=== PATIENT | female | born 1960 | race Caucasian/White ===

== ENCOUNTER → 2020-11-17 10:14 | Outpatient (CLI) | payer OTHER, SELFPAY ==
[2020-11-17 11:23] LABS: COVID19 -Nasal RAPID Negative (Negative)
== END ==
PROVIDERS: PCP Family Medicine; Visit Provider Student in an Organized Health Care Education/Training Program
DX: Z01.812 Encounter for preprocedural laboratory examination (principal); Z20.822 Contact with and (suspected) exposure to COVID-19
CPT/HCPCS: 87635

== ENCOUNTER 2020-11-19 09:45 | Observation (INO) | payer OTHER, SELFPAY ==
[2020-11-11 08:41] VITALS: BMI 24.2
[2020-11-18] VITALS (15 sets, daily range): BP systolic 92–126; BP diastolic 38–83; PULSE 60–96; RESP 11–20; TEMP 36.1–37; O2SAT 94–100; BMI 24.2
--- NOTE | 2020-11-18 | PATH_ITS ---
[facility] Accession Number: [id number] . 01 Material submitted: . hip - LEFT HIP MASS . 01 Clinical history: . LEFT TOTAL HIP ARTHROPLASTY/ANTERIOR APPROACH *OPB . 01 Diagnosis: Left Hip: Fragments of fibrocartilage with extensive degeneration/necrosis and reactive changes. Scant synovial tissue with mild chronic inflammation. MRV 11/21/20208 Local . 01 Electronically signed: . Citlaly Mills MD, Pathologist NPI- [id number] . 01 Gross description: . The specimen is received in formalin, labeled left hip mass and consists of multiple irregular cano to cano-pink fragments of soft tissue measuring 4.0 x 2.2 x 1.5 cm in aggregate. The specimen is entirely submitted in cassettes A1-A3. ([id number]) /MRV 11/19/20201452 Local . 01 Pathologist provided ICD-10: M16.12 . 01 CPT . 635100 Performed at: 01 [facility] [address] [place] [address], [place], [place] [id number] MD Cristobal Rodríguez MD Phone: [phone]
[2020-11-18] MEDS: CELECOXIB 200 MG CAPSULE PO (07:18)
[2020-11-18] MEDS: ACETAMINOPHEN 325 MG TABLET 975 MG PO (07:18)
[2020-11-18] MEDS: PREGABALIN 75 MG CAPSULE PO (07:19)
[2020-11-18] MEDS: LACTATED RINGERS 1,000 ML 42 ML IV ×2 (07:20→11:44)
[2020-11-18] MEDS: VANCOMYCIN 1,000 MG/200 ML PIGGYBACK 200 MG IV (07:20)
--- NOTE | 2020-11-18 07:37 | PM.PREOP ---
Pre-operative Note COVID-19 COVID-19 status: Negative Interval Note History & Physical reviewed/Exam performed by Physician: Yes Changes to H&P: No
--- NOTE | 2020-11-18 07:38 | PM.OP.1 ---
Operative Date/Time/Diagnoses Date of procedure: 11/18/20 Time of procedure: 08:00 Pre-op diagnosis: left hip OA, left hip mass (cyst) Post-op diagnosis: same Procedure & Clinicians Procedure: Left total hip arthroplasty and excision of left hip soft tissue mass, complex cyst Same procedure as scheduled: Yes Indications: The patient has had progressively worsening left hip pain with radiographic changes consistent with arthritis. Non-operative management has failed and the patient has requested total hip replacement. The risks, benefits and alternatives to surgery were discussed with the patient prior to proceeding. Risks discussed included, but were not limited to, failure to relieve pain, leg length discrepancy, dislocation, stiffness, infection, nerve damage, deep venous thrombosis, pulmonary embolism, stroke, coma, heart attack, permanent paralysis and , as well as the potential need for eventual revision of the prosthetic. Surgeon: Merry Luna Geological Science Teacher: Pedro Luis Gomez Anesthesia Type: General and Spinal Operative Notes Findings: Large complex cyst in the anterior hip, adequate bone, adequate stability Closure Type: primary Specimen(s): none sent Prosthetic devices, grafts, tissues, transplants, or devices: Luna and Nephew anthology 5 standard offset, R3 54 cup, +0 oxinium head Estimated Blood Loss (mL): 250 Blood products transfused: none Procedure in detail: The patient was brought to the operating room. Patient was carefully positioned in the supine position. Time-out was performed and antibiotics were given. Anesthesia was induced. She was positioned in the on the table in order to allow hyperextension of the hip. The right lower extremity was prepped and draped in a standard sterile fashion. An anterior right hip incision was made 1 fingerbreadth lateral to the anterior superior iliac spine and extended distally towards the greater trochanter. Dissection was carried out through skin and subcutaneous tissues. Superficial hemostasis was achieved. The fascia over the tensor fascia dee was defined and incised with a knife. Two Allis clamps were used to grasp the fascia. Tensor fascia dee was retracted laterally. A gelpi retractor was placed. Dissection was carried out down along the neck. The circumflex vessels were carefully identified and cauterized with the Aqua Mantis. There was good visualization of the femoral neck. A Cobra was placed superior to the neck and the gluteus fibers were carefully stripped from that superior aspect of the capsule. A 2nd retractor was placed along the inferior aspect of the neck. The rectus insertion along the capsule was partially released. A 3rd retractor that was then gently placed over the rim of the acetabulum under the rectus. Capsule was carefully incised and released from the intertrochanteric line circumferentially superior to the mid sagittal line and inferiorly to the mid sagittal line until the lesser trochanter was palpable. A tag stitch was placed both in the superior and inferior limb of the capsular insertion. Along the acetabulum capsule was also released up to the mid sagittal 12:00 position. A portion of the labrum was resected. A saw was used to perform an osteotomy at the level of the intertrochanteric line and the junction of the superior femoral neck leaving approximately 1 finger breath of residual inferior neck above the lesser trochanter. A 2nd cut was made along the femoral neck at the base of the head and a napkin ring of neck was removed. Corkscrew was placed in the femoral head and the head was removed without difficulty. Retractors were then repositioned around the acetabulum. Residual labrum was resected and additional osteophytes were removed. A reamer that was 4 mm below the templated size was placed by hand in the acetabulum and it was reamed to centralize the acetabulum. It was then reamed up to 2 under the templated size and fluoroscopy was brought in to confirm the position of the reaming and depth of reaming. I reamed 1 under the anticipated size. A trial cup was placed and noted that it was appropriately sized and fluoroscopy confirmed position and depth. The component was open and inserted without difficulty fluoroscopic imaging was used to confirm that the cup had been adequately seated and was well positioned. It was further stabilized with a single screw. Neutral poly liner was placed. The cup was tested and noted to be stable. Attention was then directed to the femur. The femur was gently hyperextended additional capsular release was performed as needed in order to allow adequate visualization of the proximal femur with elevation of the femur. Patient was placed in a hyperextended slightly adducted position with maximum external rotation. Box osteotome was used to check for any residual neck as well as sclerotic bone along the trochanter. [place] pepper was placed in the femur. Additional broaching was performed. Canal finder was used to determine the alignment of the canal and position. Size 1 broach was placed. The canal was then appropriately broached up to the templated size as long as there was adequate stability of the broach and serial advancement of the broach without excessive impingement. Specific attention was directed at avoiding varus attempting to direct the distal aspect of the broach more anteriorly and avoiding excessive anteversion. Trial reduction showed acceptable range of motion, good stability, no posterior impingement, evangelical of leg length and appropriate lateral shuck. I also hyperflexed the hip and checked that there was no impingement anteriorly and there was good stability with flexion, adduction and internal rotation. Marcaine and Exparel were injected. The stem was placed without difficulty. Repeat trial reduction and x-ray showed acceptable overall position, length, and no evidence of the femoral fracture. Final head was placed. Wound was meticulously irrigated with normal saline. The hip was reduced and additional Exparel and Marcaine were injected. The capsule was closed with interrupted nonabsorbable sutures. The fascia of the tensor was closed with interrupted and running Vicryl. No drain was placed. Any tensor fascia dee muscle that appeared to be contused or injured which was a minimal amount was carefully resected. Capsule around the tensor was injected with Exparel and Marcaine. The skin was closed with barbed stitches for the subcutaneous tissue and skin. We also used surgical glue. The wound was dressed sterilely. Brief Betadine soak was also used and was meticulously irrigated with normal saline. Patient was transferred to recovery room in satisfactory condition. Complications: none Post-operative Condition: stable Disposition: Acute Care Plan for aftercare: The patient will be maintained on a standard total hip replacement protocol with weight bearing as tolerated and anterior hip precautions. The patient will receive Aspirin and sequential compression devices for DVT prophylaxis. The patient will be discharged home when safe for the home environment.
--- NOTE | 2020-11-18 08:00 | DI.RAD.S_ITS ---
PROCEDURE: XR HIP W PEL IF DONE LT 2V INDICATIONS: L HIP TOTAL HIP INNER OP TECHNIQUE: 2 view(s) of the hip acquired. COMPARISON: None. FINDINGS: Bones: Patient is status post left hip arthroplasty, with hardware components in expected positions. The hip joint appears congruent. The visualized bony structures appear intact. Soft tissues: Overlying postoperative changes are noted. No suspicious soft tissue densities. IMPRESSION: Normal left hip arthroplasty positioning. Dictated by: Derrek Richards M.D. on 11/18/2020 at 13:08 Approved by: Derrek Richards M.D. on 11/18/2020 at 13:09
--- NOTE | 2020-11-18 08:00 | DI.RAD.S_ITS ---
PROCEDURE: XR HIP W PEL IF DONE LT 2V INDICATIONS: LT TOTAL HIP POST OP TECHNIQUE: AP pelvis with lateral view(s) of the left hip(s). COMPARISON: [facility], [place], XR HIP W PEL IF DONE LT 2V, 11/18/2020, 9:39. FINDINGS: Bones: No fractures or dislocations. Newly positioned left hip arthroplasty components are in normal alignment. Pelvic ring appears intact. No suspicious bony lesions. Soft tissues: The visualized bowel gas pattern is normal. No suspicious soft tissue calcifications. IMPRESSION: Normal alignment established after left total hip arthroplasty. Moderate right hip joint degenerative osteoarthritic change noted. Dictated by: Derrek Richards M.D. on 11/18/2020 at 13:09 Approved by: Derrek Richards M.D. on 11/18/2020 at 13:10
[2020-11-18] MEDS: CEFAZOLIN 1 GM VIAL 2 GM IV ×3 (08:10→23:56)
[2020-11-18] MEDS: TRANEXAMIC ACID 1,000 MG VIAL 2000 MG INJ ×2 (08:15→10:35)
--- NOTE | 2020-11-18 08:32 | SUR.OPER ---
Addendum entered by Harika Ng R.N. 11/18/20 12:46: Operative leg intermittently in traction and rotation and in control of the surgeon. Original Note: Supine on padded Beatrice table with bilateral legs secured in padded positioning boots, bilateral feet wrapped in cast padding and coban, and suspended in positioning spars, operative leg in traction per surgeon. Head on one pillow. Arm on non-operative side secured on padded armboard also with foam padding <90 degrees abduction. Arm on operative side padded with gel pad and resting across chest then secured with tape over sheet. Padded perineal post in place per surgeon.
[2020-11-18] MEDS: BUPIVACAINE LIPOSOME 266 MG/20 ML VIAL INJ (08:38)
[2020-11-18] MEDS: BUPIVACAINE 0.25% W/ EPI 30 ML VIAL 60 ML INJ (08:42)
[2020-11-18] MEDS: SODIUM CHLORIDE IRRIG SOLUTION 250 ML, POVIDONE-IODINE SPONGE STICKS 1 APPLIC IRR (08:44)
[2020-11-18] MEDS: HYDROMORPHONE 2 MG INJ IV ×4 (11:10→11:27)
[2020-11-18] MEDS: hydrOXYzine 50 MG/ML INJ 25 MG IM (11:30)
[2020-11-18] MEDS: OXYCODONE IR 5 MG TABLET PO (11:41)
--- NOTE | 2020-11-18 11:42 | SUR.PHASEI ---
Patient appears much more comfortable and is not as restless. Report called to Jose A Edwards
[2020-11-18] MEDS: LACTATED RINGERS 1,000 ML 125 ML IV ×2 (13:13→20:55)
[2020-11-18] MEDS: IBUPROFEN 400 MG TABLET PO ×2 (13:14→17:19)
--- NOTE | 2020-11-18 13:39 | PC.NURSE ---
Pt to room 219 via bed from PACU at 1200. Pt is drowsy but rouses to name. Frequent reminders required for proper respiratory effort. O2 sat is 89-100 on RA but frequency of breaths is between 4-12. Pt denies pain, nausea, or shortness of breath. As Pt began to be more awake and her support person assisted by frequently talking with Pt and encouraging deep breathing, her respirations have increased to 12-16. Oriented Pt to room, call light, bed controls, and tv controls. Pt was given ice water to drink. Declined offer of food at this time. IVF infusing as ordered, scd's on and running.
[2020-11-18] MEDS: ACETAMINOPHEN 325 MG TABLET 650 MG PO (14:38)
--- NOTE | 2020-11-18 16:50 | PT.IIE ---
Current Diagnoses Unilateral primary osteoarthritis, left hip (11/18/20) Surgery Performed Operation Date: 11/18/20 07:45 Actual Procedures p Total Hip Arthroplasty/Anterior Approach and Excision of Left Hip Mass(Left) - Merry Luna MD Medical History (Last Updated 11/11/20 @ 13:21 by Jasmyn Salcido RN) Adverse effect of anesthesia Concussion (2017) Eczema Encounter for gamete intrafallopian transfer (GIFT) (1993) Hypotension Osteoarthritis Pseudocholinesterase deficiency Tinnitus Physical Therapy Inpatient Evaluation/Re-Eval M1 PT/OT-IP Prior Functional Status Start: 11/18/20 17:55 Freq: NEEDED Status: Active Protocol: Document 11/18/20 16:50 AB (Rec: 11/18/20 18:11 AB [id number]) Medical Review Prior Functional Status Medical History Reviewed Yes Communication pt is drowsy but able to answer questions but needs repeated cues to stay awake Mobility and Gait pt stated that she is independent with all mobilities and ambulation without AD but occasionally uses a SPC depending on hip pain Social History Household Members none Living Arrangements House Number of Floors (Floors) One Floor Number of Stairs To Enter/Railing? 3 platform steps to enter Home Environment High Toilet,Tub/Shower,Tub/ Shower Doors Home Equipment Front Wheel Walker,Straight Cane,Raised Toilet Seat w/ Armrests,Hand Held Shower,Grab Bars In Shower Additional Social History Comment pt's friend James will be staying to assist pt for ~ 2weeks pt lives in [facility] M2 PT-IP Current Condition Start: 11/18/20 17:55 Freq: NEEDED Status: Active Protocol: Document 11/18/20 16:50 AB (Rec: 11/18/20 18:11 AB [email or web address]) Physical Therapy Current Condition Current Condition Evaluation Date 11/18/20 Treatment Diagnosis s/p L CHAO anterior approach; difficulty in walking Onset Date 11/18/20 Precautions Anterior Hip Precautions No Hip Extension,No Hip External Rotation Weight Bearing Status Weight Bearing Status Weight Bear as Tolerated Allowed Weight Bearing Amount (enter % LLE WBAT or #) (%) M3 PT-IP Subjective Start: 11/18/20 17:55 Freq: NEEDED Status: Active Protocol: Document 11/18/20 16:50 AB (Rec: 11/18/20 18:11 AB [email or web address]) Subjective Physical Therapy Visit Type Type Initial Evaluation Visit Start Time 16:50 Visit Stop Time 17:50 Total Visit Minutes 60 Number of PARACHUTE TAPER Visits 0 Physical Therapy Visit Comments Patient Comments pt is agreeable to do PT and want to walk Therapy Pain Assessment Pain Present Pain Present Denied Pain M4 PT-IP Mobility and Gait Start: 11/18/20 17:55 Freq: NEEDED Status: Active Protocol: Document 11/18/20 16:50 AB (Rec: 11/18/20 18:11 AB [email or web address]) PT-Bed Mobility Assessment Supine to Sit Supine to Sit Minimal Assistance PT-Transfer Assessment Sit to and From Stand Sit to and from Stand Moderate Assistance,1 Person Assistance,Use of Upper Extremities Equipment Transfer Assistive Device Gait Belt,Front Wheeled Walker Orthotic/Prosthetic Devices or Brace: No Transfers Transfer Destination Chair Transfer Technique ambulated using FWW Transfer Ability Level of Assist Moderate Assistance,1 Person Assistance,Use of Upper Extremities Comments Mobility Comments educated pt and friend regarding L CHAO anterior precautions. BP: 108/64 pt required repeated cues to stay awake. pt stated that she really want to ambulate. completed supine to sit min a and cues. completed sit to stand x 3 attempts. educated pt techniques with sit to stand and completed mod A and cues. pt has decrease safety awareness affecting mobility. cued for L quads contraction. completed ambulation using FWW ~ 30 ft mod A and cues. BP after walker: 123/72. set up chair. pt completed sit to stand mod A and ambulated towards the chair but Dr. Luna came in and instructed pt to walk in the hallway and pt completed another ~ 30 ft mod A FWW and stated that she is getting nauseated. instructed pt to get back into the room and sat on the chair . max cues for safety. BP checked: 111/71. attempted to get nurse/NAC but unable to find. informed another nurse and is aware of pt's nausea. pt continues to be on/off alerted and continues to be drowsy. set up pt with table and call light and was feeling better before PT session ended. Left pt with friend in room. Gait Assessment Gait Gait Assistance Required: Moderate Assistance Distance (Feet) 30 Able to Maintain Weight Bearing Status Yes During Gait Assistive Devices Assistive Device Gait Belt,Front Wheeled Walker Orthotic/Prosthetic Devices or Brace: No Gait Deviations General Gait Pattern Antalgic,Decreased Stride Length,Decreased Feet Clearance Factors Limiting Gait Function Factors Limiting Gait Function Decreased Activity Tolerance, Decreased Sensation,Decreased Strength,Difficulty Following Directions,Limited Range of Motion,Poor Balance,Poor Safety Awareness Comments Gait Comments pls refer to mobility section for details PT-Balance Assessment Sitting Balance and Reactions Static Sitting Balance Ability Good Dynamic Sitting Balance Ability Good Standing Balance and Reactions Static Standing Balance Ability Fair Dynamic Standing Balance Ability Poor Device Used FWW M5 PT-IP Objective Assessments Start: 11/18/20 17:55 Freq: NEEDED Status: Active Protocol: Document 11/18/20 16:50 AB (Rec: 11/18/20 18:11 AB [id number]) Orientation Orientation/Cognition Level of Alertness Lethargic Orientation Name,Place,Situation Language Function Ability No Deficits Noted Safety Awareness Decreased Safety Awareness Gross Range of Motion Lower Extremity ROM Assessment Within Functional Limits Strength Lower Extremity Strength Assessment Left Impaired Hip 3+/5 Knee 4-/5 Sensation Assessment Sensation Gross Sensation Right LE Impaired Sensation Description Numbness Comments Sensation Comments c/o numbness on anterior upper thigh but able to move LE Muscle Tone Muscle Tone WNL Yes M6 PT-IP Treatment Start: 11/18/20 17:55 Freq: NEEDED Status: Active Protocol: Document 11/18/20 16:50 AB (Rec: 11/18/20 18:11 AB [id number]) Physical Therapy Treatment Education Education Provided Precautions,Weight Bearing Status,Post-Op Packet,Safety M7 PT-IP Assessment and Plan Start: 11/18/20 17:55 Freq: NEEDED Status: Active Protocol: Document 11/18/20 16:50 AB (Rec: 11/18/20 18:11 AB [email or web address]) PT Summary Assessment and Plan Potential Rehabilitation Potential Good Status of Condition at Evaluation Evolving Summary Impairments Pain,ROM,Strength,Balance, Coordination,Sensation,Tone, Cognition,Bed Mobility, Transfers,Gait,Activity Tolerance Assessment Summary pt requiring mod A with mobility using FWW. Pt s/p L CHAO anterior approach and just had surgery this morning. pt is drowsy and requires constant cues to stay awake and has decrease safety awareness at this time. pt will likely progress with mobility. will continue to assess and will conduct caregiver training when appropriate as well as stair climbing training. pt stated that she is set up with outpt PT. Goals Bed Mobility Goal Standby Assistance Transfer Goal Standby Assistance,Front Wheeled Walker Gait Goal Standby Assistance,Front Wheel Walker Gait Distance 150 Other Goals up/down 3 platform steps using FWW SBA Days to Meet Goals 5 Frequency of Treatment Frequency Of Treatment Twice a Day Treatment Plan Physical Therapy Treatment Plan Bed Mobility Training,Transfer Training,Gait Training, Therapeutic Exercise,Balance Retraining,Post Op Education, Discharge Planning,Hot or Cold Pack,Neuromuscular Re-ed, Coordination Retraining,Manual Therapy Precautions Anterior Hip Precautions No Hip Extension,No Hip External Rotation Other Precautions LLE WBAT Recommendations To Nursing Amount of Assist Needed 1 Person Assist Discharge Recommendations PT Discharge Recommendations Home with Assistance, Outpatient PT Transportation Needs at Discharge Private Vehicle
--- NOTE | 2020-11-18 21:05 | PC.NURSE ---
Pt satisfactory post op course. Lungs clear, SpO2 98% RA Left hip aquacell dsg CDI. IVF infusing as per MD orders into right hand Pt sat in chair for short time, amb. w/PT in hallway. Call light w/in reach, bed alarm on for pt safety. continue w/plan of care.
[2020-11-19] VITALS (7 sets, daily range): BP systolic 91–104; BP diastolic 41–58; PULSE 63–94; RESP 16–20; TEMP 36.3–37.3; O2SAT 95–100
[2020-11-19 06:12] LABS: Hematocrit 28.4 % (36-46); Hemoglobin 9.5 g/dL (12.0-16.0)
--- NOTE | 2020-11-19 09:47 | PT.IPTN ---
Current Diagnoses Unilateral primary osteoarthritis, left hip (11/18/20) Surgery Performed Operation Date: 11/18/20 07:45 Actual Procedures p Total Hip Arthroplasty/Anterior Approach and Excision of Left Hip Mass(Left) - Merry Luna MD Physical Therapy Treatment Note M2 PT-IP Current Condition Start: 11/18/20 17:55 Freq: NEEDED Status: Active Protocol: Document 11/18/20 16:50 AB (Rec: 11/18/20 18:11 AB [id number]) Physical Therapy Current Condition Current Condition Evaluation Date 11/18/20 Treatment Diagnosis s/p L CHAO anterior approach; difficulty in walking Onset Date 11/18/20 Precautions Anterior Hip Precautions No Hip Extension,No Hip External Rotation Weight Bearing Status Weight Bearing Status Weight Bear as Tolerated Allowed Weight Bearing Amount (enter % LLE WBAT or #) (%) M3 PT-IP Subjective Start: 11/18/20 17:55 Freq: NEEDED Status: Active Protocol: Document 11/19/20 09:20 SP (Rec: 11/19/20 11:10 SP [id number]) Subjective Physical Therapy Visit Type Type Treatment Note Visit Start Time 09:20 Visit Stop Time 09:47 Total Visit Minutes 27 Notes Friend James completed caregiver training and provided assist needed throughout tx. O2 100% on RA and HR 80 bpm supine assessed by Respiratory Therapist when arrived. Number of PROFESSOR OF JOURNALISM Visits 1 Physical Therapy Visit Comments Patient Comments pt is agreeable to do PT, want to walk and assess 3 PF step mgt required to enter home during tx. Patient Goals Return home with friend ( staying with her from [place]) to assist her. Therapy Pain Assessment Pain When Pain Assessed At Rest Pain Present Pain Present Denied Pain Location Left Hip Intensity 0 Scale Used at rest M4 PT-IP Mobility and Gait Start: 11/18/20 17:55 Freq: NEEDED Status: Active Protocol: Document 11/19/20 09:20 SP (Rec: 11/19/20 11:10 SP [id number]) PT-Bed Mobility Assessment Supine to Sit Supine to Sit Standby Assistance Sit to Supine Sit to Supine Total Assistance Scooting Scooting to Edge of Bed Standby Assistance Scooting Up and Down in Bed Dependent PT-Transfer Assessment Sit to and From Stand Sit to and from Stand Contact Guard Assistance,1 Person Assistance,Use of Upper Extremities Equipment Transfer Assistive Device Gait Belt,Front Wheeled Walker ,Mechanical Lift Orthotic/Prosthetic Devices or Brace: No Transfers Transfer Destination Bed,Wheelchair Transfer Technique ambulated using FWW Transfer Ability Level of Assist Contact Guard Assistance,Total Assistance,1 Person Assistance,Use of Upper Extremities Comments Mobility Comments Pt supine in bed when arrived, respiratory therapy assessing vitals, see notes BP was not assessed. When RT left, PROFESSOR OF JOURNALISM instructed LE ex: ankle pumps, heel slides with use of gait belt approx 90 * knee flex, quad and glut sets. She completed supine>sit SBA w/ use of gait belt self. Friend donned gait belt, Sit>stand CGA using BUE, cued push from bed then transition to FWW. Instructed wt shift for LE support awareness. Pt denied lightheadedness so proceeded to walk into hallway further distance CGA usign FWW w/c follow, denied lightheadedness but stated tiring at aprpox 50 ft, stand>sit in w/c CGA, cued for RLE positioned in front for comfort. PROFESSOR OF JOURNALISM pushed pt down to PF step. Pt sit> stand CGA pushed from chair, ascended/descended 2 PF step usign FWW CGA via friend, good balance and repositioning FWW self cued for patterning LEs and FWW as needed. When pt completed descend 2nd PF step reported lightheadedness so returned to chair 3 ft, stand> sit CGA with good hand placement. Pt became unresponsive w/ head tilted back and eyes looking forward opened repositioning when assisting BLE on foot rests. Rapid response called while PROFESSOR OF JOURNALISM supporting pts head, noted diapharatic forehead and arms . PROFESSOR OF JOURNALISM and team assisted pt back to room via w/c, on return pt able to answer questions appropriately. Pt unable to support head and trunk so pt hoyered back to bed into trendelenburg postion . Team assessed vitals, provided IV and fluids. Team took over. Pt once in bed stated felt alot better and talking appropriately. Gait Assessment Gait Gait Assistance Required: Contact Guard Assist,1 Person Assist Distance (Feet) 50 Able to Maintain Weight Bearing Status Yes During Gait Assistive Devices Assistive Device Gait Belt,Front Wheeled Walker Orthotic/Prosthetic Devices or Brace: No Gait Deviations General Gait Pattern Antalgic,Decreased Stride Length,Decreased Feet Clearance Factors Limiting Gait Function Factors Limiting Gait Function Decreased Activity Tolerance, Decreased Sensation,Decreased Strength,Difficulty Following Directions,Limited Range of Motion,Poor Safety Awareness Comments Gait Comments Pt maintained light stagger step, good demonstration no L hip IR or ext during gait using fWW, cGA w/c follow. Stair Climbing Assessment Evaluation Level of Assist On Stairs Contact Guard Assistance,1 Person Assistance Devices Stair Climbing Assistive Devices Front Wheel Walker Technique/Endurance Stair Climbing Direction Ascend and Descend Stair Climbing Technique Step to Step Number of Steps Climbed 1 Stair Climbing Set # Repetitions (reps) 2 Comments Stair Climbing Comments See mobility comments for details, completed 2 fo 3 PF steps usingFWW to assimulate entering home. PT-Balance Assessment Sitting Balance and Reactions Static Sitting Balance Ability Good Dynamic Sitting Balance Ability Good Standing Balance and Reactions Static Standing Balance Ability Good Dynamic Standing Balance Ability Fair Device Used FWW M5 PT-IP Objective Assessments Start: 11/18/20 17:55 Freq: NEEDED Status: Active Protocol: Document 11/18/20 16:50 AB (Rec: 11/18/20 18:11 AB [id number]) Orientation Orientation/Cognition Level of Alertness Lethargic Orientation Name,Place,Situation Language Function Ability No Deficits Noted Safety Awareness Decreased Safety Awareness Gross Range of Motion Lower Extremity ROM Assessment Within Functional Limits Strength Lower Extremity Strength Assessment Left Impaired Hip 3+/5 Knee 4-/5 Sensation Assessment Sensation Gross Sensation Right LE Impaired Sensation Description Numbness Comments Sensation Comments c/o numbness on anterior upper thigh but able to move LE Muscle Tone Muscle Tone WNL Yes M6 PT-IP Treatment Start: 11/18/20 17:55 Freq: NEEDED Status: Active Protocol: Document 11/19/20 09:20 SP (Rec: 11/19/20 11:10 SP [id number]) Physical Therapy Treatment Exercises Exercises Ankle Pumps,Gluteal Sets,Quad Sets,Heel Slides Knee ROM Measurement 90 deg Education Education Provided Precautions,Weight Bearing Status,Post-Op Packet,Safety M7 PT-IP Assessment and Plan Start: 11/18/20 17:55 Freq: NEEDED Status: Active Protocol: Document 11/19/20 09:20 SP (Rec: 11/19/20 11:10 SP [id number]) PT Summary Assessment and Plan Potential Rehabilitation Potential Good Status of Condition at Evaluation Evolving Summary Impairments Pain,ROM,Strength,Balance, Coordination,Sensation,Tone, Cognition,Bed Mobility, Transfers,Gait,Activity Tolerance Progress Towards Goals Slow Progress due to Medical Issues,Slow Progress due to Activity Tolerance Assessment Summary Pt requried SBA during supine> sit, Sit <>stand using FWW CGA occasional cues for hand placement. CGA during gait and PF step mgt. Pt became lightheaded post 2nd step mgt so returned to wheelchair, when in w/c became unresponsive, rapid response called. PROFESSOR OF JOURNALISM and team got her back to room and lainey transfer back to bed. Team took over and provided further assessments. Will continue to assess progress in pm. Pt is set up for outpt PT. Goals Bed Mobility Goal Standby Assistance Transfer Goal Standby Assistance,Front Wheeled Walker Gait Goal Standby Assistance,Front Wheel Walker Gait Distance 150 Other Goals up/down 3 platform steps using FWW SBA Days to Meet Goals 5 Frequency of Treatment Frequency Of Treatment Twice a Day Treatment Plan Physical Therapy Treatment Plan Bed Mobility Training,Transfer Training,Gait Training, Therapeutic Exercise,Balance Retraining,Post Op Education, Discharge Planning,Hot or Cold Pack,Neuromuscular Re-ed, Coordination Retraining,Manual Therapy Precautions Anterior Hip Precautions No Hip Extension,No Hip External Rotation Other Precautions LLE WBAT Recommendations To Nursing Amount of Assist Needed Standby Assistance,1 Person Assist Discharge Recommendations PT Discharge Recommendations Home with Assistance, Outpatient PT Transportation Needs at Discharge Private Vehicle
--- NOTE | 2020-11-19 10:20 | P.EN_ITS ---
Event Note Date Patient Seen: 11/19/20 Time Patient Seen: 09:45 Event Note: CASING INSPECTOR called for Ms. Najera, she left CHAO, now POD #1 and was working with therapy when she became lightheaded and nearly passed out. She was pale, diaphoretic and confused. Blood pressure in the 90s. She was placed in bed and immediately felt better, became less confused. She was placed in trendelenburg and her blood pressure improved to the 120s. Stat EKG showed normal sinus rhythm. She did not hypoglycemia, her oxygen levels were normal. She had no tachycardia. She had no chest pain. Her symptoms seem consistent with orthostatic hypotension. She will have her labs rechecked with hgb and bmp, to make sure she has no further anemia. She will be given fluid bolus for her symptoms. She had no opiates and no blood pressure medications this morning. Attempt is being made to notify her primary team.
[2020-11-19] MEDS: SODIUM CHLORIDE 0.9% 1,000 ML 1000 ML IV (10:30)
[2020-11-19 10:40] LABS: Add Manual Diff / Slide Review NO; Basophils Absolute Auto 0 /uL (0-100); Basophils Percent Auto 0.3 % (0-2); Eosinophils Absolute Auto 0 /uL (0-450); Hematocrit 29.3 % (36-46); Hemoglobin 9.8 g/dL (12.0-16.0); Lymphocytes Absolute Auto 2000 /uL (1100-4500); Lymphocytes Percent Auto 25.6 % (25-40); Mean Corpuscular HGB Conc 33.4 % (30-36); Mean Corpuscular Hemoglobin 30.1 PG (26-34); Mean Corpuscular Volume 89.9 fL (80-100); Monocytes Absolute Auto 600 /uL (0-900); Monocytes Percent Auto 7.5 % (3-14); Neutrophils Absolute Auto 5100 /uL (1500-7000); Neutrophils Percent Auto 66.6 % (50-75); Platelet Count 206 X10^3/uL (150-400); Red Blood Cell Count 3.26 X10^6/uL (4.0-5.2); Red Cell Distribution Width 13.5 % (11.6-14.8); White Blood Cell Count 7.7 X10^3/uL (4.5-11.0)
[2020-11-19] MEDS: ACETAMINOPHEN 325 MG TABLET 650 MG PO ×3 (10:42→21:24)
[2020-11-19] MEDS: IBUPROFEN 400 MG TABLET PO ×5 (10:43→21:25)
[2020-11-19] MEDS: ASPIRIN EC 81 MG TABLET PO ×2 (10:43→21:25)
[2020-11-19 10:59] LABS: Blood Urea Nitrogen 6 mg/dL (7-17); Calcium 8.7 mg/dL (8.4-10.2); Carbon Dioxide 29 mmol/L (22-32); Chloride 103 mmol/L (98-107); Estimated Glomerular Filt Rate > 60.0 mL/min (>60); Glucose 116 mg/dL (80-110); HEMOLYSIS < 15 (0-50); Potassium 3.2 mmol/L (3.4-5.1); Sodium 139 mmol/L (137-145)
--- NOTE | 2020-11-19 15:48 | CM.MNRNOTE ---
Rapid response: Pt working w/PT this am when she had a syncopal episode by the stairs. Did not completely lose cons. Was able to say a few words. Not able to open eyes, profusely diaphoretic. Required the over head lift system to get her to bed. BP systolic was 90's which pt reports is usual for her. Dr. Hanley responded to the rapid response and gave a few preliminary orders and then to notify ortho if further concerns. Ortho was notified, they were down in [place] but FILIBERTO Gomez did come up and see her. Pt is still requesting to go home at that time. PT is to come again and see her to see if she is safe for home. However about an hour ago she reported she was scared by the incident and got a little teary as would be expected. She was reassured that if she wasn't safe she would not be sent home. BP remains in the 90's systolic, has minimal pain.
[2020-11-19] MEDS: POTASSIUM CHLORIDE 20 MEQ TAB 40 MEQ PO (15:59)
--- NOTE | 2020-11-19 17:04 | PT.IPTN ---
Current Diagnoses Unilateral primary osteoarthritis, left hip (11/19/20) Surgery Performed Operation Date: 11/18/20 07:45 Actual Procedures p Total Hip Arthroplasty/Anterior Approach and Excision of Left Hip Mass(Left) - Merry Luna MD Physical Therapy Treatment Note M2 PT-IP Current Condition Start: 11/18/20 17:55 Freq: NEEDED Status: Active Protocol: Document 11/18/20 16:50 AB (Rec: 11/18/20 18:11 AB [id number]) Physical Therapy Current Condition Current Condition Evaluation Date 11/18/20 Treatment Diagnosis s/p L CHAO anterior approach; difficulty in walking Onset Date 11/18/20 Precautions Anterior Hip Precautions No Hip Extension,No Hip External Rotation Weight Bearing Status Weight Bearing Status Weight Bear as Tolerated Allowed Weight Bearing Amount (enter % LLE WBAT or #) (%) M3 PT-IP Subjective Start: 11/18/20 17:55 Freq: NEEDED Status: Active Protocol: Document 11/19/20 16:31 SP (Rec: 11/19/20 18:51 SP [id number]) Subjective Physical Therapy Visit Type Type Treatment Note Visit Start Time 16:31 Visit Stop Time 17:04 Total Visit Minutes 33 Notes Ortho vitals taken: supine: BP 94/55, HR 69 SaO2 97%. seated: 93/44 standin/41, HR 82 Post gait in standin/60. *denied lightheaded or dizziness throughout tx. Number of ENGINE MANAGER Visits 2 Physical Therapy Visit Comments Patient Comments Pt agreed to work with therapy , declined step mgt this tx. Patient Goals Return home with friend ( staying with her from [place]) to assist her. Therapy Pain Assessment Pain Present Pain Present Denied Pain M4 PT-IP Mobility and Gait Start: 11/18/20 17:55 Freq: NEEDED Status: Active Protocol: Document 11/19/20 16:31 SP (Rec: 11/19/20 18:51 SP [id number]) PT-Bed Mobility Assessment Supine to Sit Supine to Sit Standby Assistance Scooting Scooting to Edge of Bed Standby Assistance PT-Transfer Assessment Sit to and From Stand Sit to and from Stand Standby Assistance,Use of Upper Extremities Equipment Transfer Assistive Device Gait Belt,Front Wheeled Walker Orthotic/Prosthetic Devices or Brace: No Transfers Transfer Destination Chair,Toilet Transfer Technique ambulated using FWW Transfer Ability Level of Assist Standby Assistance,Contact Guard Assistance,Use of Upper Extremities Comments Mobility Comments Vitals taken pre/ during mobility, see notes. Supine> sitting, scoot to EOB, sit> stand using FWW SBA with proper hand placement. Pt able to walk around room using FWW sBA step to progressed to stagger step to maintain precautions. Recall 2/2 precautions. Pt requested use of bathroom, she SPT in front toilet, backed up fully and stand>sit use of grab bar and toilet CGA for safety provided . Pt stable balance on toilet, stood within 5 ft distance to allow semi privacy. ENGINE MANAGER called nurse to take over care . Pt was on toilet w/ call light in reach, friend and nurse in room when left. Gait Assessment Gait Gait Assistance Required: Standby Assistance,Contact Guard Assist Distance (Feet) 30 Able to Maintain Weight Bearing Status Yes During Gait Assistive Devices Assistive Device Gait Belt,Front Wheeled Walker Orthotic/Prosthetic Devices or Brace: No Gait Deviations General Gait Pattern Antalgic,Decreased Stride Length,Decreased Feet Clearance Factors Limiting Gait Function Factors Limiting Gait Function Decreased Activity Tolerance, Decreased Strength,Limited Range of Motion Comments Gait Comments See mobility comments Stair Climbing Assessment Comments Stair Climbing Comments Pt declined reassessment of stair mgt. Will need to complete 3 PF steps using FWW next am tx. PT-Balance Assessment Sitting Balance and Reactions Static Sitting Balance Ability Normal Dynamic Sitting Balance Ability Good Standing Balance and Reactions Static Standing Balance Ability Good Dynamic Standing Balance Ability Good Device Used FWW M5 PT-IP Objective Assessments Start: 11/18/20 17:55 Freq: NEEDED Status: Active Protocol: Document 11/18/20 16:50 AB (Rec: 11/18/20 18:11 AB [id number]) Orientation Orientation/Cognition Level of Alertness Lethargic Orientation Name,Place,Situation Language Function Ability No Deficits Noted Safety Awareness Decreased Safety Awareness Gross Range of Motion Lower Extremity ROM Assessment Within Functional Limits Strength Lower Extremity Strength Assessment Left Impaired Hip 3+/5 Knee 4-/5 Sensation Assessment Sensation Gross Sensation Right LE Impaired Sensation Description Numbness Comments Sensation Comments c/o numbness on anterior upper thigh but able to move LE Muscle Tone Muscle Tone WNL Yes M6 PT-IP Treatment Start: 11/18/20 17:55 Freq: NEEDED Status: Active Protocol: Document 11/19/20 16:31 SP (Rec: 11/19/20 18:51 SP [id number]) Physical Therapy Treatment Education Education Provided Precautions,Weight Bearing Status,Safety M7 PT-IP Assessment and Plan Start: 11/18/20 17:55 Freq: NEEDED Status: Active Protocol: Document 11/19/20 16:31 SP (Rec: 11/19/20 18:51 SP [id number]) PT Summary Assessment and Plan Potential Rehabilitation Potential Good Status of Condition at Evaluation Evolving Summary Impairments Pain,ROM,Strength,Balance, Coordination,Sensation,Tone, Cognition,Bed Mobility, Transfers,Gait,Activity Tolerance Progress Towards Goals Progressing Toward Goals,Slow Progress due to Activity Tolerance Assessment Summary Pt required sBA during all mobility, used FWW. Stable vitals and no reports or demonstration of syncope this tx. Continue to assess vitals during mobilitiy for safety. Recommending 1 more am tx to assess 3 PF step mgt prior to DC, 9 am 11/20/20 w/ pt and friend James. Will continue to assess progress. Goals Bed Mobility Goal Standby Assistance Transfer Goal Standby Assistance,Front Wheeled Walker Gait Goal Standby Assistance,Front Wheel Walker Gait Distance 150 Other Goals up/down 3 platform steps using FWW SBA Days to Meet Goals 5 Frequency of Treatment Frequency Of Treatment Twice a Day Treatment Plan Physical Therapy Treatment Plan Bed Mobility Training,Transfer Training,Gait Training, Therapeutic Exercise,Balance Retraining,Post Op Education, Discharge Planning,Hot or Cold Pack,Neuromuscular Re-ed, Coordination Retraining,Manual Therapy Other Recommendations and Next Treatment Check orthostatic vitals, Focus further distance gait using FWW w/c follow, 3 PF step mgt using FWW. Precautions Anterior Hip Precautions No Hip Extension,No Hip External Rotation Other Precautions LLE WBAT Recommendations To Nursing Amount of Assist Needed Standby Assistance Discharge Recommendations PT Discharge Recommendations Home with Assistance, Outpatient PT Transportation Needs at Discharge Private Vehicle
[2020-11-19] MEDS: DOCUSATE 100 MG CAPSULE PO (21:25)
--- NOTE | 2020-11-19 22:49 | PC.NURSE ---
pt is A&OX4, able to make needs known, calm and cooperative with all care. VSS however pt baseline is SBP 19-100. no syncopal episodes when up this shift. RA LS CTA, voids adequate amounts of clear yellow urine, CGA assist to BR FWW and gait belt. S.O at bedside assists and calls for asistance as needed. Left anteriror hip incuision with aquacell intacrt with no drainage. Pt has minimal c/o pain this shift 0 @ rest 2-3 with movement.
[2020-11-20 00:20] VITALS: BP 89/50; PULSE 66; RESP 18; TEMP 36.6; O2SAT 97
[2020-11-20 04:30] VITALS: BP 93/54; PULSE 75; RESP 18; TEMP 36.7; O2SAT 99
[2020-11-20] MEDS: IBUPROFEN 400 MG TABLET PO ×2 (05:24→09:16)
--- NOTE | 2020-11-20 09:11 | PM.DS.1 ---
History of Present Illness History of Present Illness Chief complaint: Left Total Hip Arthroplasty/Anterior Approach *OPB Narrative: Patient having no pain this morning. Denies fever chills. No nausea vomiting. Discharge Providers Provider Discharge Date: 11/20/20 Primary care physician: Rachelle Acosta MD Consults: 11/18/20 07:03 Consult to Anesthesiology Routine Comment: Consulting Provider: Anesthesiologist Reason for consultation: Regional block for post operative pain control 11/18/20 12:19 Consult to Discharge Planning Routine Comment: Consult to Physical Therapy Evaluate & Treat Comment: Physician Instructions: post op CHAO protocol Consult to Respiratory Therapy Evaluate & Treat Comment: Physician Instructions: Evaluate and treat Discharge provider: Pedro Luis Gomez PA-C Summary Hospital Course Discharge Diagnosis: left hip OA, left hip mass (cyst) Hypotension Hospital Course: Procedure & Clinicians Procedure: Left total hip arthroplasty and excision of left hip soft tissue mass, complex cyst Same procedure as scheduled: Yes Indications: The patient has had progressively worsening left hip pain with radiographic changes consistent with arthritis. Non-operative management has failed and the patient has requested total hip replacement. The risks, benefits and alternatives to surgery were discussed with the patient prior to proceeding. Risks discussed included, but were not limited to, failure to relieve pain, leg length discrepancy, dislocation, stiffness, infection, nerve damage, deep venous thrombosis, pulmonary embolism, stroke, coma, heart attack, permanent paralysis and , as well as the potential need for eventual revision of the prosthetic. Surgeon: Merry Luna Stone Belt Sander: Pedro Luis Gomez Anesthesia Type: General and Spinal Operative Notes Findings: Large complex cyst in the anterior hip, adequate bone, adequate stability Closure Type: primary Specimen(s): none sent Prosthetic devices, grafts, tissues, transplants, or devices: [employer] anthology 5 standard offset, R3 54 cup, +0 oxinium head Estimated Blood Loss (mL): 250 Blood products transfused: none Patient admitted to the hospital for left total hip arthroplasty and excision of left hip soft tissue mass, complex cyst. Patient taken to the operating room after consent obtained. Patient underwent surgery on November 18, 2020. Patient had some lightheadedness and weakness with physical therapy yesterday. She actually had a fainting episode see no by hospitalist. Patient is found to be stable. Patient was discharged home after physical therapy yesterday. Physical therapy rounded later in the day and patient was not going to be able to meet the [employer] [facility] schedule. Patient was helpful for overnight to further observe since her blood pressure continued to be low. Patient is stable this morning. Repeat CBC. Discharge home today in stable condition. Exam Vital Signs (past 8 hours): - 11/19/20 06:00 11/19/20 07:52 11/19/20 09:35 Temperature 97.4 F L 97.5 F L Pulse Rate 63 63 70 Respiratory Rate 18 20 18 Blood Pressure 103/55 L 92/50 L Pulse Oximetry 97 99 Oxygen Delivery Method Room Air Oxygen Flow Rate 0 Narrative Exam Narrative: A 60-year-old female having breakfast in bed in no apparent distress. Dressing is Clean, dry, intact.. Motor functions intact bilateral lower extremities. Sensation grossly intact to light touch bilateral lower extremities. Objective Labs Result Diagrams: 11/19/20 10:20 11/19/20 10:20 Labs: Laboratory Results - last 24 hr 11/19/20 11/19/20 05:43 10:20 WBC 7.7 RBC 3.26 L Hgb 9.5 L 9.8 L Hct 28.4 L 29.3 L MCV 89.9 MCH 30.1 MCHC 33.4 RDW 13.5 Plt Count 206 Neut % (Auto) 66.6 Lymph % (Auto) 25.6 [place] % (Auto) 7.5 Eos % (Auto) 0.0 L Baso % (Auto) 0.3 Neut # (Auto) 5100 Lymph # (Auto) 2000 [place] # (Auto) 600 Eos # (Auto) 0 Baso # (Auto) 0 PFSH Medical History Adverse effect of anesthesia Concussion (2017) Eczema Encounter for gamete intrafallopian transfer (GIFT) (1993) Hypotension Osteoarthritis Pseudocholinesterase deficiency Tinnitus Surgical History Hx of bilateral cataract extraction Hx of tonsillectomy (1992) Social History household members: none Smoking Status: Never smoker alcohol intake: current Discharge Assessment & Plan Assessment and Plan Assessment: Patient progressing as expected. Continue to push fluids. Plan of Treatment: Anterior hip precautions. Weightbearing as tolerated. Discharge home today in stable condition. Discharge Plan Discharge Plan Patient Disposition: Home Provider Discharge Comment: Discharge home after physical therapy. Discharge orders & Medications Prescriptions: New acetaminophen 325 mg Tablet 650 mg PO TID Qty: 60 RF: 0 polyethylene glycol 3350 17 gram Powder In Packet 17 g PO DAILY PRN (Reason: Constipation) Qty: 14 RF: 0 aspirin 81 mg Tablet,Delayed Release (Dr/Ec) 81 mg PO BID Qty: 60 RF: 0 ibuprofen 400 mg Tablet 400 mg PO Q4HR Qty: 60 RF: 0 oxycodone 5 mg Tablet 5 mg PO Q3HR PRN (Reason: Pain, Moderate (4-6)) Qty: 45 RF: 0 Continued Cbd See Rx Instructions .ROUTE .COMPLEX RF: 0 Discontinued acetaminophen [Tylenol Arthritis] 650 mg Tablet Extended Release 650 mg PO BID PRN (Reason: pain) RF: 0 Follow up/Referrals: Rachelle Acosta MD [Primary Care Provider] - Merry Luna MD [Physician] - (2 wks) Diet/Activity/Treatments Diet: Diet as Tolerated Activity: Hip precautions, WBAT Cold/Heat Therapy: Ice as needed Skin/Wound/Dressing Care Report to your healthcare provider any signs of infection, such as:: chills, fever, increased pain, unusual drainage and unusual redness Dressing: Keep clean and dry Visit Report/Discharge Packet Instructions: DI for Hip Replacement, DI for Constipation, How to Prevent Falls, DI for Prescription Opioid Use Stand Alone Forms: Surgery Discharge Discharge Data Primary Care Provider: Rachelle Acosta Attending Provider: Merry Luna Quality VTE Deep Vein Thrombosis/Pulmonary Embolism Present on Admission: No
[2020-11-20] MEDS: ASPIRIN EC 81 MG TABLET PO (09:14)
[2020-11-20] MEDS: ACETAMINOPHEN 325 MG TABLET 650 MG PO (09:14)
[2020-11-20 09:30] LABS: Add Manual Diff / Slide Review NO; Basophils Absolute Auto 0 /uL (0-100); Basophils Percent Auto 0.4 % (0-2); Eosinophils Absolute Auto 0 /uL (0-450); Eosinophils Percent Auto 0.6 % (2-4); Hematocrit 26.1 % (36-46); Hemoglobin 8.6 g/dL (12.0-16.0); Lymphocytes Absolute Auto 1200 /uL (1100-4500); Lymphocytes Percent Auto 20.8 % (25-40); Mean Corpuscular HGB Conc 32.9 % (30-36); Monocytes Absolute Auto 500 /uL (0-900); Monocytes Percent Auto 8.2 % (3-14); Neutrophils Absolute Auto 4000 /uL (1500-7000); Platelet Count 176 X10^3/uL (150-400); Red Blood Cell Count 2.86 X10^6/uL (4.0-5.2); Red Cell Distribution Width 13.7 % (11.6-14.8); White Blood Cell Count 5.8 X10^3/uL (4.5-11.0)
--- NOTE | 2020-11-20 10:05 | PT.IPTN ---
Current Diagnoses Unilateral primary osteoarthritis, left hip (11/19/20) Surgery Performed Operation Date: 11/18/20 07:45 Actual Procedures p Total Hip Arthroplasty/Anterior Approach and Excision of Left Hip Mass(Left) - Merry Luna MD Physical Therapy Treatment Note M2 PT-IP Current Condition Start: 11/18/20 17:55 Freq: NEEDED Status: Discharge Protocol: Document 11/18/20 16:50 AB (Rec: 11/18/20 18:11 AB [id number]) Physical Therapy Current Condition Current Condition Evaluation Date 11/18/20 Treatment Diagnosis s/p L CHAO anterior approach; difficulty in walking Onset Date 11/18/20 Precautions Anterior Hip Precautions No Hip Extension,No Hip External Rotation Weight Bearing Status Weight Bearing Status Weight Bear as Tolerated Allowed Weight Bearing Amount (enter % LLE WBAT or #) (%) M3 PT-IP Subjective Start: 11/18/20 17:55 Freq: NEEDED Status: Discharge Protocol: Document 11/20/20 09:07 CLB (Rec: 11/20/20 13:52 CLB [id number]) Subjective Physical Therapy Visit Type Type Treatment Note Visit Start Time 09:07 Visit Stop Time 10:05 Total Visit Minutes 58 Notes Friend James present for CG training Number of WOOL GRADER Visits 3 Physical Therapy Visit Comments Patient Comments Pt willing to work with therapy. Patient Goals Return home with friend ( staying with her from [place]) to assist her. Therapy Pain Assessment Pain Present Pain Present Denied Pain M4 PT-IP Mobility and Gait Start: 11/18/20 17:55 Freq: NEEDED Status: Discharge Protocol: Document 11/20/20 09:07 CLB (Rec: 11/20/20 13:52 CLB [id number]) PT-Transfer Assessment Sit to and From Stand Sit to and from Stand Standby Assistance,Use of Upper Extremities Equipment Transfer Assistive Device Gait Belt,Front Wheeled Walker Orthotic/Prosthetic Devices or Brace: No Transfers Transfer Destination Chair,Toilet Transfer Technique ambulated using FWW Transfer Ability Level of Assist Standby Assistance,Use of Upper Extremities Comments Mobility Comments Pt BP 110/62, standing BP after activity 128 /74. Pt went up/down three PF steps w/FWW/CGA provided by friend. Pt then ambulated in landa ~75ft w/FWW/SBA. Pt returned to room sitting in chair with all needs within reach and friend present. Gait Assessment Gait Gait Assistance Required: Standby Assistance,1 Person Assist Distance (Feet) 75 Able to Maintain Weight Bearing Status Yes During Gait Assistive Devices Assistive Device Gait Belt,Front Wheeled Walker Orthotic/Prosthetic Devices or Brace: No Gait Deviations General Gait Pattern Antalgic,Decreased Stride Length,Decreased Feet Clearance Comments Gait Comments Pt able to ambulate in landa with WC follow as pt was anxious about getting dizzy. Stair Climbing Assessment Evaluation Level of Assist On Stairs Contact Guard Assistance,1 Person Assistance Devices Stair Climbing Assistive Devices Front Wheel Walker Technique/Endurance Stair Climbing Direction Ascend and Descend Stair Climbing Technique Step to Step Number of Steps Climbed 1 Stair Climbing Set # Repetitions (reps) 3 M5 PT-IP Objective Assessments Start: 11/18/20 17:55 Freq: NEEDED Status: Discharge Protocol: Document 11/18/20 16:50 AB (Rec: 11/18/20 18:11 AB [id number]) Orientation Orientation/Cognition Level of Alertness Lethargic Orientation Name,Place,Situation Language Function Ability No Deficits Noted Safety Awareness Decreased Safety Awareness Gross Range of Motion Lower Extremity ROM Assessment Within Functional Limits Strength Lower Extremity Strength Assessment Left Impaired Hip 3+/5 Knee 4-/5 Sensation Assessment Sensation Gross Sensation Right LE Impaired Sensation Description Numbness Comments Sensation Comments c/o numbness on anterior upper thigh but able to move LE Muscle Tone Muscle Tone WNL Yes M6 PT-IP Treatment Start: 11/18/20 17:55 Freq: NEEDED Status: Discharge Protocol: Document 11/20/20 09:07 CLB (Rec: 11/20/20 13:52 CLB [id number]) Physical Therapy Treatment Exercises Exercises Ankle Pumps,Gluteal Sets,Quad Sets,Heel Slides Education Education Provided Precautions,Weight Bearing Status,Safety Other Treatments Other Treatment Performed education on transferring into bath to shower chair. M7 PT-IP Assessment and Plan Start: 11/18/20 17:55 Freq: NEEDED Status: Discharge Protocol: Document 11/20/20 09:07 CLB (Rec: 11/20/20 13:52 CLB [id number]) PT Summary Assessment and Plan Potential Rehabilitation Potential Good Status of Condition at Evaluation Evolving Summary Impairments Pain,ROM,Strength,Balance, Coordination,Sensation,Tone, Cognition,Bed Mobility, Transfers,Gait,Activity Tolerance Progress Towards Goals Progressing Toward Goals Assessment Summary Pt is SBA for all mobility and CGA for stair management. Pt able to increase gait distance to ~75ft w/FWW/SBA. Pt plans to d/c home with assist of friend. Goals Bed Mobility Goal Standby Assistance Transfer Goal Standby Assistance,Front Wheeled Walker Gait Goal Standby Assistance,Front Wheel Walker Gait Distance 150 Other Goals up/down 3 platform steps using FWW SBA Days to Meet Goals 5 Frequency of Treatment Frequency Of Treatment Twice a Day Treatment Plan Physical Therapy Treatment Plan Bed Mobility Training,Transfer Training,Gait Training, Therapeutic Exercise,Balance Retraining,Post Op Education, Discharge Planning,Hot or Cold Pack,Neuromuscular Re-ed, Coordination Retraining,Manual Therapy Precautions Anterior Hip Precautions No Hip Extension,No Hip External Rotation Other Precautions LLE WBAT Recommendations To Nursing Amount of Assist Needed Standby Assistance Discharge Recommendations PT Discharge Recommendations Home with Assistance, Outpatient PT Transportation Needs at Discharge Private Vehicle
--- NOTE | 2020-11-20 10:18 | PC.NURSE ---
Addendum entered by Eduardo Duggan R.N. 11/20/20 11:19: Discharge instructions and home care handouts reviewed with patient. Dressing aquacel remains CDI. IV dc'd intact. Patient states understanding and has no further questions at this time. States she has a follow up appointment scheduled already. Escorted out via wheelchair with all her belongings by GL[facility]SIE[employer]. Original Note: Patient cleared by P.T. and able to ambulate and complete stairs. Patient eager to go home. Pedro Luis Gomez notified of todays CBC results and ok to discharge home.
--- NOTE | 2020-11-20 15:55 | CM.IDA ---
Initial DCP Assessment Note Pt is a 60 yo female, resident of [place], now POD#2 from left hip surgeryw/ Dr Luna PCP: Rachelle Acosta Payer: Liv Reviewed chart, pt discussed in multidisciplinary rounds this morning. Patient had a rapid response called and syncopal episode yesterday, however, recovered nicely and was inevitably cleared for return home w/friend to assist. Outpatient PT DC order from Ortho has already been initiated this morning. No needs expected from DC planning team although will remain available in case this changes today. TEODORO Barcenas
== END 2020-11-20 11:20 | disposition home or self-care (01) ==
LOC: OR 13:28 → AC 13:28
PROVIDERS: Internal Medicine; Physician Assistant Medical; Admitting Provider Orthopaedic Surgery; PCP Family Medicine; Referring Provider Orthopaedic Surgery; Visit Provider Orthopaedic Surgery
PROC: (CPT 27130; principal; 2020-11-18 07:45)
DX: M16.12 Unilateral primary osteoarthritis, left hip (principal); M65.9 Synovitis and tenosynovitis, unspecified; M25.852 Other specified joint disorders, left hip; I95.9 Hypotension, unspecified
CPT/HCPCS: 27130; 36415; 36592; 73502; 76000; 80048; 85014; 85018; 85025; 93005; 93010; 97110; 97116; 97162; 97530; C1776; G0378; C9290; J0690; J1100; J1170; J2250; J2405; J2704; J3010; J3410

== ENCOUNTER → 2020-12-11 10:10 | Outpatient (CLI) | payer OTHER, SELFPAY ==
[2020-11-18 12:19] VITALS: BMI 24.2
--- NOTE | 2020-12-11 | DI.US.S_ITS ---
PROCEDURE: US ABDOMEN COMPLETE INDICATIONS: ABNORMAL LFTS TECHNIQUE: Real-time scanning was performed of the abdominal and retroperitoneal organs, with image documentation. COMPARISON: None. FINDINGS: Liver: Liver is normal in size and homogeneous in echotexture. Gallbladder: Gallbladder is poorly seen and is contracted. No obvious wall thickening or pericholecystic fluid. No shadowing gallstone or sludge identified. Biliary ducts: Normal caliber. Pancreas: Visualized portions of the pancreas are sonographically normal. Spleen: Spleen is normal in size and homogeneous in echotexture. Kidneys: Normal appearance of both kidneys. No shadowing calculus or hydronephrosis. Aorta: Visualized aorta is normal in caliber at less than 3 cm. Iliacs: Proximal common iliac arteries are normal in caliber at less than 2.5 cm. IVC: Intrahepatic inferior vena cava is patent. Miscellaneous: No free abdominal fluid. IMPRESSION: No acute finding. Gallbladder poorly visualized but grossly normal. No findings of cholecystitis, cholelithiasis, choledocholithiasis, or biliary duct dilatation. Dictated by: Los Sexton M.D. on 12/11/2020 at 12:24 Approved by: Los Sexton M.D. on 12/11/2020 at 12:26
== END ==
PROVIDERS: PCP Family Medicine; Referring Provider Internal Medicine; Visit Provider Internal Medicine
DX: R94.5 Abnormal results of liver function studies (principal)
CPT/HCPCS: 76700

== ENCOUNTER 2021-12-28 13:45 | Outpatient (RCR) | payer BC, SELFPAY ==
[2020-11-18 12:19] VITALS: BMI 24.2
--- NOTE | 2021-10-29 15:15 | PT.OIE ---
Current Diagnoses Pain in left hip (10/29/21) Presence of left artificial hip joint (10/29/21) Past Medical History (Last Reviewed 11/20/20 @ 09:10 by Pedro Luis Gomez PA-C) Adverse effect of anesthesia Concussion (2017) Eczema Encounter for gamete intrafallopian transfer (GIFT) (1993) Hypotension Osteoarthritis Pseudocholinesterase deficiency Tinnitus Past Surgical History (Last Reviewed 11/20/20 @ 09:10 by Pedro Luis Gomez PA-C) Hx of bilateral cataract extraction Hx of tonsillectomy (1992) Visit Care Team Role Provider Type Arsenio Nicole DO Attending Provider Non-Staff Family Provider Primary Care Provider Referring Provider Specialty: Family Practice Address: [address] [place] [address], [facility] Email: Physical Therapy Initial Evaluation PT-OP-A Visit Information Start: 10/26/21 12:29 Freq: Status: Active Protocol: Document 10/29/21 14:30 DCW (Rec: 10/29/21 17:47 DCW [id number]) Out-Patient Physical Therapy Visit Information Visit Information Visit Type Initial Evaluation Visit Start Time 14:30 Visit Stop Time 15:10 Total Visit Minutes 40 Visit Number 1 Number of [employer] Visits 0 Evaluation Information Evaluation Date 10/29/21 PT-OP-B Current Condition Start: 10/26/21 12:29 Freq: Status: Active Protocol: Document 10/29/21 14:30 DCW (Rec: 10/29/21 17:47 DCW [id number]) Current Condition History of Current Condition Onset Date 4 months Current Complaints Left hip pain and stiffness History of Current Condition Pt is a 61 year old female presenting to skilled therapy one year s/p L anterior CHAO complaining of a four month history of increased left hip stiffness, mostly following an extended period of sitting. Pt reports it started mainly right on this bone here (ASIS) , but then it spread out a little bit more. Pt notes it is a mild pain, but not even really pain, more just stiffness. Pt reports she has no complaints of radiating pain or weakness, and goes to the gym 3x/week without causing any hip pain. Prior Treatments and Tests L CHAO 11/18/20 PT-OP-C Subjective Start: 10/26/21 12:29 Freq: Status: Active Protocol: Document 10/29/21 14:30 DCW (Rec: 10/29/21 17:47 DCW [id number]) OP-PT Subjective Patient Comments Patient Comments Really I just want to know what it is. Patient Reported Progress Same Patient Questionnaires Lower Extremity Functional Scale LEFS Score 78.75 LEFS Impairment 1 to 19% Impaired (Score 63-79 ) OP-PT Pain Assessment Pain Assessment Grid Paper Pain Assessment Grid Completed Yes Location Left Anterior Hip Intensity 4 Description Tightness PT-OP-F Manual Assessment Start: 10/26/21 12:29 Freq: Status: Active Protocol: Document 10/29/21 14:30 DCW (Rec: 10/29/21 17:47 DCW [id number]) Manual Assessments Soft Tissue Assessment Soft Tissue Mobility Assessment Severe reaction 4/4 tenderness : palpation not allowed with mild palpation of left psoas. No other notable tightness or soreness along left hip Joint Mobility Assessment Joint Mobility Assessment Left hip s/p anterior CHAO great mobility PT-OP-K Range of Motion Start: 10/26/21 12:29 Freq: Status: Active Protocol: Document 10/29/21 14:30 DCW (Rec: 10/29/21 17:50 DCW [id number]) Hip Goniometric Range of Motion Hip Left Passive Comments Hip ROM WNL 1 year s/p anterior CHAO PT-OP-L Special Tests Start: 10/26/21 12:29 Freq: Status: Active Protocol: Document 10/29/21 14:30 DCW (Rec: 10/29/21 17:50 DCW [id number]) Special Tests Hip Special Tests [facility] Test Results Positive L Psoas tightness PT-OP-Q Treatments Start: 10/26/21 12:29 Freq: Status: Active Protocol: Document 10/29/21 14:30 DCW (Rec: 10/29/21 17:52 DCW [id number]) Therapeutic Exercises Supine Exercises Psoas stretch Supine Exercise Name Hanging off edge of table, discussed Duke stretch Side left Comments Dissuaded pt from performing standing lunge psoas stretch d /t Ant CHAO PT-OP-T Assessment and Plan Start: 10/26/21 12:29 Freq: Status: Active Protocol: Document 10/29/21 14:30 DCW (Rec: 10/30/21 08:43 DCW [id number]) Physical Therapy Assessment Rehab Potential Rehabilitation Potential Excellent Evaluation Complexity Number of Personal Factors/Comorbidities 1-2 Number of Body Systems Impaired 1-2 Clinical Presentation at Evaluation Stable Impairments Impairments Pain,Soft Tissue Mobility,Tone Goals Two Impairment Pt reports pain in anterior left hip upon standing after sitting >30 minute [facility] Goal (LTG) Pt to be able to stand after sitting for at least one hour without any complaints of hip pain or tightness LTG Duration 12/10/21 One Impairment Pt does not have an appropriate home exercise program Short Term Goal (STG) Pt to be independent and compliant with an appropriate HEP STG Duration 11/28/21 Assessment Summary Assessment Pt presents with signs and symptoms consistent with likely psoas strain/spasm 1 year s/p left anterior CHAO. Pt largely only complaining of stiffness following an extended period of passive hip flexion, however exhibited a fairly severe reaction to mild palpation of the left psoas. Pt hip joint mobility is fantastic, and shows no symptoms in any other area. Pt does note she has also recently started performing hanging leg raises at the gym, which likely exacerbated her psoas soreness. Reviewed psoas stretches with pt, recommended that she avoid half-kneeling lunge stretch due to anterior CHAO, pt able to get significant psoas stretch with hanging leg off table with only minimal extension (due to hip flexor tightness), which she stated feels like exactly what this hip needs. Also recommended [facility] stretch to avoid going into hip extension. Pt should benefit from follow-up with PT ~1x/week for a few weeks to ensure stretching and self STM is improving her symptoms, but overall pt will likely quickly progress to independent HEP. Physical Therapy Plan Frequency and Duration Frequency of Treatment 1-2x/week Duration of Treatment 6 weeks Plan of Care Start Date 10/29/21 Plan of Care End Date 12/10/21 Therapeutic Interventions Therapeutic Interventions Home Exercise Program,Manual Therapy,Patient/Caregiver Education,Self-Care/Home Management,Soft Tissue Mobilization,Therapeutic Activities,Therapeutic Exercises Next Visit Focus/Plan Next Note Type Treatment Note Next Visit Plan Review stretching, assess symptoms improvement
--- NOTE | 2021-10-29 15:15 | PT.OPPOC ---
Physical, Occupational & Speech Therapy At [facility] Current Diagnoses Pain in left hip (10/29/21) Presence of left artificial hip joint (10/29/21) Visit Care Team Role Provider Type Arsenio Nicole DO Attending Provider Non-Staff Family Provider Primary Care Provider Referring Provider Specialty: Family Practice Address: [address] [place] [address], [facility] Email: Plan Of Care PT-OP-T Assessment and Plan Start: 10/26/21 12:29 Freq: Status: Active Protocol: Document 10/29/21 14:30 DCW (Rec: 10/30/21 08:43 DCW [id number]) Physical Therapy Assessment Rehab Potential Rehabilitation Potential Excellent Evaluation Complexity Number of Personal Factors/Comorbidities 1-2 Number of Body Systems Impaired 1-2 Clinical Presentation at Evaluation Stable Impairments Impairments Pain,Soft Tissue Mobility,Tone Goals Two Impairment Pt reports pain in anterior left hip upon standing after sitting >30 minute [employer] Goal (LTG) Pt to be able to stand after sitting for at least one hour without any complaints of hip pain or tightness LTG Duration 12/10/21 One Impairment Pt does not have an appropriate home exercise program Short Term Goal (STG) Pt to be independent and compliant with an appropriate HEP STG Duration 11/28/21 Assessment Summary Assessment Pt presents with signs and symptoms consistent with likely psoas strain/spasm 1 year s/p left anterior CHAO. Pt largely only complaining of stiffness following an extended period of passive hip flexion, however exhibited a fairly severe reaction to mild palpation of the left psoas. Pt hip joint mobility is fantastic, and shows no symptoms in any other area. Pt does note she has also recently started performing hanging leg raises at the gym, which likely exacerbated her psoas soreness. Reviewed psoas stretches with pt, recommended that she avoid half-kneeling lunge stretch due to anterior CHAO, pt able to get significant psoas stretch with hanging leg off table with only minimal extension (due to hip flexor tightness), which she stated feels like exactly what this hip needs. Also recommended Duke stretch to avoid going into hip extension. Pt should benefit from follow-up with PT ~1x/week for a few weeks to ensure stretching and self STM is improving her symptoms, but overall pt will likely quickly progress to independent HEP. Physical Therapy Plan Frequency and Duration Frequency of Treatment 1-2x/week Duration of Treatment 6 weeks Plan of Care Start Date 10/29/21 Plan of Care End Date 12/10/21 Therapeutic Interventions Therapeutic Interventions Home Exercise Program,Manual Therapy,Patient/Caregiver Education,Self-Care/Home Management,Soft Tissue Mobilization,Therapeutic Activities,Therapeutic Exercises Next Visit Focus/Plan Next Note Type Treatment Note Next Visit Plan Review stretching, assess symptoms improvement Plan of Care Dates Plan of Care Start Date 10/29/21 Plan of Care End Date 12/10/21 Electronically Signed by: Patel Choi, PT 10/30/21 0845 If you are in agreement with this Plan of Care, please return a signed and dated copy. I have reviewed this Plan of Care and certify that the skilled therapy services above are required to meet the patient?s needs. Physician Signature Date Printed Name and Credentials Clinical Instructor Signature Printed Name and Credentials
--- NOTE | 2021-11-11 15:37 | PT.OTN ---
Current Diagnoses Pain in left hip (11/11/21) Presence of left artificial hip joint (11/11/21) Physical Therapy Treatment Note PT-OP-A Visit Information Start: 10/26/21 12:29 Freq: Status: Active Protocol: Document 11/11/21 11:15 AMB (Rec: 11/11/21 13:00 AMB [id number]) Out-Patient Physical Therapy Visit Information Visit Information Visit Type Treatment Note Visit Start Time 11:15 Visit Stop Time 12:00 Total Visit Minutes 45 Visit Number 2 PT-OP-B Current Condition Start: 10/26/21 12:29 Freq: Status: Active Protocol: Document 10/29/21 14:30 DCW (Rec: 10/29/21 17:47 DCW [id number]) Current Condition History of Current Condition Onset Date 4 months Current Complaints Left hip pain and stiffness History of Current Condition Pt is a 61 year old female presenting to skilled therapy one year s/p L anterior CHAO complaining of a four month history of increased left hip stiffness, mostly following an extended period of sitting. Pt reports it started mainly right on this bone here (ASIS) , but then it spread out a little bit more. Pt notes it is a mild pain, but not even really pain, more just stiffness. Pt reports she has no complaints of radiating pain or weakness, and goes to the gym 3x/week without causing any hip pain. Prior Treatments and Tests L CHAO 11/18/20 PT-OP-C Subjective Start: 10/26/21 12:29 Freq: Status: Active Protocol: Document 11/11/21 11:15 AMB (Rec: 11/11/21 13:00 AMB [id number]) OP-PT Subjective Patient Comments Patient Comments Had been doing stretching 2x/ day and was feeling better, then dropped down to 1x/day and is feeling discomfort more frequently now, but still better than at eval. Patient Reported Progress Improving PT-OP-F Manual Assessment Start: 10/26/21 12:29 Freq: Status: Active Protocol: Document 10/29/21 14:30 DCW (Rec: 10/29/21 17:47 DCW [id number]) Manual Assessments Soft Tissue Assessment Soft Tissue Mobility Assessment Severe reaction 4/4 tenderness : palpation not allowed with mild palpation of left psoas. No other notable tightness or soreness along left hip Joint Mobility Assessment Joint Mobility Assessment Left hip s/p anterior CHAO great mobility PT-OP-K Range of Motion Start: 10/26/21 12:29 Freq: Status: Active Protocol: Document 10/29/21 14:30 DCW (Rec: 10/29/21 17:50 DCW [id number]) Hip Goniometric Range of Motion Hip Left Passive Comments Hip ROM WNL 1 year s/p anterior CHAO PT-OP-L Special Tests Start: 10/26/21 12:29 Freq: Status: Active Protocol: Document 10/29/21 14:30 DCW (Rec: 10/29/21 17:50 DCW [id number]) Special Tests Hip Special Tests [facility] Test Results Positive L Psoas tightness PT-OP-Q Treatments Start: 10/26/21 12:29 Freq: Status: Active Protocol: Document 11/11/21 11:15 AMB (Rec: 11/11/21 13:00 AMB [id number]) Therapeutic Exercises Supine Exercises SLR Supine Exercise Name too difficult at thist point supine bike Reps/Minutes 2x10 Comments cues to keep legs high to avoid significant discomfort Psoas stretch Supine Exercise Name Hanging off edge of table, discussed [facility] stretch Side left Standing Exercises 1 Standing Exercise Name gentle lunge stretch, but pt didn't feel stretch much Reps/Minutes 30x3 Manual Therapy Treatment Soft Tissue Mobilization 1 Body Location iliopsoas Mobilization Type Myofascial Release,Strumming PT-OP-T Assessment and Plan Start: 10/26/21 12:29 Freq: Status: Active Protocol: Document 11/11/21 11:15 AMB (Rec: 11/11/21 13:00 AMB [id number]) Physical Therapy Assessment Goals Two Impairment Pt reports pain in anterior left hip upon standing after sitting >30 minute [place] Goal (LTG) Pt to be able to stand after sitting for at least one hour without any complaints of hip pain or tightness LTG Duration 12/10/21 One Impairment Pt does not have an appropriate home exercise program Short Term Goal (STG) Pt to be independent and compliant with an appropriate HEP STG Duration 11/28/21 Assessment Summary Assessment 55 d knee flexion with duke on the left, 87 on the right. Recommended pt continue with duke test stretch and start gentle strengthening, significantly less tender to palpation today
--- NOTE | 2021-11-30 16:00 | PT.OTN ---
Current Diagnoses Pain in left hip (11/30/21) Presence of left artificial hip joint (11/30/21) Physical Therapy Treatment Note PT-OP-A Visit Information Start: 10/26/21 12:29 Freq: Status: Active Protocol: Document 11/30/21 14:35 AMB (Rec: 11/30/21 16:07 AMB [id number]) Out-Patient Physical Therapy Visit Information Visit Information Visit Type Treatment Note Visit Start Time 14:30 Visit Stop Time 15:15 Total Visit Minutes 45 Visit Number 3 PT-OP-B Current Condition Start: 10/26/21 12:29 Freq: Status: Active Protocol: Document 10/29/21 14:30 DCW (Rec: 10/29/21 17:47 DCW [id number]) Current Condition History of Current Condition Onset Date 4 months Current Complaints Left hip pain and stiffness History of Current Condition Pt is a 61 year old female presenting to skilled therapy one year s/p L anterior CHAO complaining of a four month history of increased left hip stiffness, mostly following an extended period of sitting. Pt reports it started mainly right on this bone here (ASIS) , but then it spread out a little bit more. Pt notes it is a mild pain, but not even really pain, more just stiffness. Pt reports she has no complaints of radiating pain or weakness, and goes to the gym 3x/week without causing any hip pain. Prior Treatments and Tests L CHAO 11/18/20 PT-OP-C Subjective Start: 10/26/21 12:29 Freq: Status: Active Protocol: Document 11/30/21 14:35 AMB (Rec: 11/30/21 16:07 AMB [id number]) OP-PT Subjective Patient Comments Patient Comments Feels like pain is about the same. Had been doing stretches until about a week ago, but had family in town and hasn't thislast week. Patient Reported Progress Same PT-OP-F Manual Assessment Start: 10/26/21 12:29 Freq: Status: Active Protocol: Document 10/29/21 14:30 DCW (Rec: 10/29/21 17:47 DCW [id number]) Manual Assessments Soft Tissue Assessment Soft Tissue Mobility Assessment Severe reaction 4/4 tenderness : palpation not allowed with mild palpation of left psoas. No other notable tightness or soreness along left hip Joint Mobility Assessment Joint Mobility Assessment Left hip s/p anterior CHAO great mobility PT-OP-K Range of Motion Start: 10/26/21 12:29 Freq: Status: Active Protocol: Document 10/29/21 14:30 DCW (Rec: 10/29/21 17:50 DCW [id number]) Hip Goniometric Range of Motion Hip Left Passive Comments Hip ROM WNL 1 year s/p anterior CHAO PT-OP-L Special Tests Start: 10/26/21 12:29 Freq: Status: Active Protocol: Document 10/29/21 14:30 DCW (Rec: 10/29/21 17:50 DCW [id number]) Special Tests Hip Special Tests Duke Test Results Positive L Psoas tightness PT-OP-Q Treatments Start: 10/26/21 12:29 Freq: Status: Active Protocol: Document 11/30/21 14:30 AMB (Rec: 12/01/21 15:59 AMB [id number]) Therapeutic Exercises Supine Exercises IT band stretch Supine Exercise Name pt didn't really feel stretch Psoas stretch Supine Exercise Name Hanging off edge of table, discussed Duke stretch Side left Sidelying Exercises hip abduction Sidelying Exercise Name SLR Reps/Minutes 2x10 clamshell Resistance #2 t band Reps/Minutes 2x10 Manual Therapy Treatment Soft Tissue Mobilization 1 Body Location IT band Mobilization Type Myofascial Release,Strumming PT-OP-T Assessment and Plan Start: 10/26/21 12:29 Freq: Status: Active Protocol: Document 11/30/21 14:35 AMB (Rec: 11/30/21 16:07 AMB [id number]) Physical Therapy Assessment Goals Two Impairment Pt reports pain in anterior left hip upon standing after sitting >30 minute Shelter Goal (LTG) Pt to be able to stand after sitting for at least one hour without any complaints of hip pain or tightness LTG Duration 12/10/21 One Impairment Pt does not have an appropriate home exercise program Short Term Goal (STG) Pt to be independent and compliant with an appropriate HEP STG Duration 11/28/21 Assessment Summary Assessment Gave hip abductor/ER strengthening as HEP. Suggest rolling IT band as pain right at ASIS could be TFL Related as pt does not feel like hip flexor stretching has fully resolved tx. Physical Therapy Plan Next Visit Focus/Plan Next Note Type Treatment Note Next Visit Plan Review stretching, assess symptoms improvement
--- NOTE | 2021-12-28 14:43 | PT.OTN ---
Current Diagnoses Pain in left hip (12/28/21) Presence of left artificial hip joint (12/28/21) Physical Therapy Treatment Note PT-OP-A Visit Information Start: 10/26/21 12:29 Freq: Status: Active Protocol: Document 12/28/21 13:45 DCW (Rec: 12/28/21 14:43 DCW [id number]) Out-Patient Physical Therapy Visit Information Visit Information Visit Type Progress Note Visit Start Time 13:45 Visit Stop Time 14:30 Total Visit Minutes 45 Visit Number 4 Number of [employer] ADMINISTRATOR Visits 0 Evaluation Information Evaluation Date 10/29/21 PT-OP-B Current Condition Start: 10/26/21 12:29 Freq: Status: Active Protocol: Document 10/29/21 14:30 DCW (Rec: 10/29/21 17:47 DCW [id number]) Current Condition History of Current Condition Onset Date 4 months Current Complaints Left hip pain and stiffness History of Current Condition Pt is a 61 year old female presenting to skilled therapy one year s/p L anterior CHAO complaining of a four month history of increased left hip stiffness, mostly following an extended period of sitting. Pt reports it started mainly right on this bone here (ASIS) , but then it spread out a little bit more. Pt notes it is a mild pain, but not even really pain, more just stiffness. Pt reports she has no complaints of radiating pain or weakness, and goes to the gym 3x/week without causing any hip pain. Prior Treatments and Tests L CHAO 11/18/20 PT-OP-C Subjective Start: 10/26/21 12:29 Freq: Status: Active Protocol: Document 12/28/21 13:45 DCW (Rec: 12/28/21 14:43 DCW [id number]) OP-PT Subjective Patient Comments Patient Comments It's about the same. It was feeling better, but then I took some time off for a vacation, and it went back to normal, and I haven't been able to get it back to improving again. PT-OP-F Manual Assessment Start: 10/26/21 12:29 Freq: Status: Active Protocol: Document 12/28/21 13:45 DCW (Rec: 12/28/21 14:43 DCW [id number]) Manual Assessments Soft Tissue Assessment Soft Tissue Mobility Assessment Tenderness to palpation 2/4 tenderness: pain with wincing with mild palpation of left psoas. No other notable tightness or soreness along left hip PT-OP-K Range of Motion Start: 10/26/21 12:29 Freq: Status: Active Protocol: Document 10/29/21 14:30 DCW (Rec: 10/29/21 17:50 DCW [id number]) Hip Goniometric Range of Motion Hip Left Passive Comments Hip ROM WNL 1 year s/p anterior CHAO PT-OP-L Special Tests Start: 10/26/21 12:29 Freq: Status: Active Protocol: Document 12/28/21 13:45 DCW (Rec: 12/28/21 14:43 DCW [id number]) Special Tests Hip Special Tests Piriformis Test Results Mild tightness Duke Test Results Positive L Psoas tightness PT-OP-Q Treatments Start: 10/26/21 12:29 Freq: Status: Active Protocol: Document 12/28/21 13:45 DCW (Rec: 12/28/21 14:43 DCW [id number]) Therapeutic Exercises Supine Exercises Piriformis Supine Exercise Name Piriformis stretch Psoas stretch Supine Exercise Name Hanging off edge of table, discussed Duke stretch Side left Sidelying Exercises hip abduction Sidelying Exercise Name SLR Reps/Minutes 2x10 Standing Exercises 1 Standing Exercise Name hip abduction Side bilateral Resistance Lv 2 Manual Therapy Treatment Soft Tissue Mobilization 3 Body Location Psoas Mobilization Type Sustained Pressure,Trigger Point Release 2 Body Location Piriformis Mobilization Type Sustained Pressure,Trigger Point Release 1 Body Location IT band Mobilization Type Myofascial Release,Strumming PT-OP-T Assessment and Plan Start: 10/26/21 12:29 Freq: Status: Active Protocol: Document 12/28/21 13:45 DCW (Rec: 12/28/21 14:43 DCW [id number]) Physical Therapy Assessment Impairments Impairments Pain,Soft Tissue Mobility,Tone Goals Two Impairment Pt reports pain in anterior left hip upon standing after sitting >30 minute Mosaicist Goal (LTG) Pt to be able to stand after sitting for at least one hour without any complaints of hip pain or tightness LTG Duration 12/28/21 - Improving One Impairment Pt does not have an appropriate home exercise program Short Term Goal (STG) Pt to be independent and compliant with an appropriate HEP STG Duration Met Assessment Summary Assessment Pt showing some improvement in tone along anterior and posterior hips, still some stiffness upon first standing after extended sitting. Between strengthening exercises, stretching, and self-STM, pt feels comfortable with discharge at this time. Physical Therapy Plan Frequency and Duration Frequency of Treatment 1x/Week Duration of Treatment 1 day Plan of Care Start Date 12/28/21 Plan of Care End Date 12/29/21 Discharge Physical Therapy Discharge Reasons No Longer Attending PT Next Visit Focus/Plan Next Note Type Discharge Summary
--- NOTE | 2021-12-28 14:44 | PT.OPPOC ---
Physical, Occupational & Speech Therapy At [facility] Current Diagnoses Pain in left hip (12/28/21) Presence of left artificial hip joint (12/28/21) Visit Care Team Role Provider Type Arsenio Nicole DO Attending Provider Non-Staff Family Provider Primary Care Provider Referring Provider Specialty: Family Practice Address: [address] [place] [address], [facility] Email: Plan Of Care PT-OP-T Assessment and Plan Start: 10/26/21 12:29 Freq: Status: Active Protocol: Document 12/28/21 13:45 DCW (Rec: 12/28/21 14:43 DCW [id number]) Physical Therapy Assessment Impairments Impairments Pain,Soft Tissue Mobility,Tone Goals Two Impairment Pt reports pain in anterior left hip upon standing after sitting >30 minute Commercial Real Estate Appraiser Goal (LTG) Pt to be able to stand after sitting for at least one hour without any complaints of hip pain or tightness LTG Duration 12/28/21 - Improving One Impairment Pt does not have an appropriate home exercise program Short Term Goal (STG) Pt to be independent and compliant with an appropriate HEP STG Duration Met Assessment Summary Assessment Pt showing some improvement in tone along anterior and posterior hips, still some stiffness upon first standing after extended sitting. Between strengthening exercises, stretching, and self-STM, pt feels comfortable with discharge at this time. Physical Therapy Plan Frequency and Duration Frequency of Treatment 1x/Week Duration of Treatment 1 day Plan of Care Start Date 12/28/21 Plan of Care End Date 12/29/21 Discharge Physical Therapy Discharge Reasons No Longer Attending PT Next Visit Focus/Plan Next Note Type Discharge Summary Plan of Care Dates Plan of Care Start Date 12/28/21 Plan of Care End Date 12/29/21 Electronically Signed by: Patel Choi, PT 12/28/21 [id number] If you are in agreement with this Plan of Care, please return a signed and dated copy. I have reviewed this Plan of Care and certify that the skilled therapy services above are required to meet the patient?s needs. Physician Signature Date Printed Name and Credentials Clinical Instructor Signature Printed Name and Credentials
== END 2021-12-29 11:55 ==
LOC: PHYS 13:45
PROVIDERS: Family Provider Family Medicine; PCP Family Medicine; Referring Provider Family Medicine; Visit Provider Family Medicine
DX: Z96.642 Presence of left artificial hip joint (principal); M25.552 Pain in left hip
CPT/HCPCS: 97110; 97140; 97161